=== PATIENT | female | born 1945 | race Caucasian/White ===

== ENCOUNTER → 2021-03-02 10:17 | Outpatient (CLI) | payer OTHER, SELFPAY ==
--- NOTE | ~2021-03-02 | MM_ITS ---
EXAMINATION: MM screening [facility] BI w steve HISTORY: Screening mammogram TECHNIQUE: Craniocaudal and mediolateral oblique 3-D tomosynthesis images were obtained and synthetic 2-D images were generated. CAD analysis was submitted and interpreted. COMPARISON: 03/24/2019, 01/09/2018, 12/14/2015 bilateral digital screening mammogram examinations BREAST PARENCHYMAL COMPOSITION: The breasts are almost entirely fatty. FINDINGS: There is no evidence of suspicious mass, calcification, or architectural distortion to sugg est malignancy in either breast. There has been no suspicious interval change. IMPRESSION: 1. No mammographic evidence of malignancy. 2. Recommend routine screening mammography in one year. BI-RADS Category 1: Negative Reviewed, dictated and finalized at location A.
--- NOTE | ~2021-03-02 | DEXA_ITS ---
Bone Density Report Name: Cinthya Tang Age: 76 Sex: Female Ethnicity: White Date of : 1945 Indication: postmenopausal; screening for osteoporosis; height loss; Referring Provider: Renetta Perez Study: Bone densitometry was performed. Exam Date: March 02, 2021 Accession number: [id number] Bone Density: Region BMD T-score Z-score Classification AP Spine (L2, L3, L4) 1.438 3.3 5.9 Normal Femoral Neck (Left) 0.773 -0.7 1.5 Normal Total Hip (Left) 0.874 -0.6 1.4 Normal Femoral Neck (Right) 0.809 -0.4 1.9 Normal Total Hip (Right) 0.931 -0.1 1.9 Normal Total Hip Mean 0.903 -0.4 1.7 Normal World Health Organization criteria for BMD impression classify patients as: Normal (T-score at or above -1.0), Osteopenia (T-score between -1.0 and -2.5), or Osteoporosis (T-score at or below -2.5). 10-year Fracture Risk: FRAX not reported because: All T-scores for Spine Total, Hip Total, Femoral Neck at or above -1.0 Previous Exams: Region Exam Age BMD T-score BMD Change BMD Change Date g/cm2 vs Baseline vs Previous Total Hip(Left) 03/02/2021 76 0.874 -0.6 -0.051 -0.051 01/09/2018 72 0.925 -0.1 Total Hip(Right) 03/02/2021 76 0.931 -0.1 -0.007 -0.007 01/09/2018 72 0.938 0.0 *Denotes significance at 95% confidence level, LSC for Total Hip = 0.027 g/cm2 Clinical Information Provided by Patient: Has used the following medications: Vitamin D, Calcium Patient maximum height was 63 Menopause Age: 43 Drinks caffeinated beverages Onset of menses at age 11 Number of children 1 Impression: The patient has normal bone mass. No significant bone loss was observed. Discussion: BONE DENSITY IS ABOVE THE MINIMUM DESIRABLE LEVEL AT ALL SKELETAL SITES TESTED. This patient?s bone mineral density is above the minimum desirable level (T-score -1.0 or better) at all sites measured. The patient should follow a healthful lifestyle (good nutrition with adequate calcium and vitamin D, and appropriate weight-bearing exercise). Follow-Up: Consider repeating this study in 5 years or sooner if there is some new clinical indication. Reported by: EMILY on 03/02/2021 10:54:00 AM. Reviewed, dictated and finalized at eladio CORTEZ
== END ==
PROVIDERS: PCP Family Medicine; Visit Provider Physician Assistant
DX: Z12.31 Encounter for screening mammogram for malignant neoplasm of breast (principal); Z78.0 Asymptomatic menopausal state
CPT/HCPCS: 77063; 77067; 77080

== ENCOUNTER 2021-10-26 08:30 | Outpatient (RCR) | payer OTHER, SELFPAY ==
[2021-07-29 08:07] VITALS: PULSE 41
== END 2021-10-26 15:22 | disposition home or self-care (01) ==
LOC: ANHCPREHAB 08:30
PROVIDERS: PCP Family Medicine
DX: Z95.2 Presence of prosthetic heart valve (principal)
CPT/HCPCS: 93798

== ENCOUNTER 2022-05-30 09:00 | Outpatient (RCR) | payer OTHER, SELFPAY ==
[2022-04-27 08:02] VITALS: BP_SYST 170
--- NOTE | 2022-04-27 09:03 | PTOPEVAL ---
PHYSICAL THERAPY INITIAL EVALUATION. Thank you for referring Cinthya Tang to [facility].? The patient is scheduled to be seen for therapy? 2x/week for 4 weeks. Please review, sign, date and return this plan of care FAISAL. I agree with and certify that the following plan of care is medically necessary. Referring Physician Date Attending Provider: Romero Ybarra MD *PT Outpatient Evaluation Start: 04/27/22 Evaluation Information Diagnosis Joaquim shoulder pain Onset ~3 months Subjective Information Pt states both of her Query Text:As Reported By Patient/ shoulders hurt. She states she Family can raise her R arm overhead to where she needs, but her L arm is very limited. 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 Pain Assessment Right Shoulder(s) Reported Pain Level 0 Pain Description Aching,Tightness,With Movement Pain Frequency Acute,Intermittent Lowest Pain Intensity 0 Greatest Pain Intensity 4 Pain Aggravating Factors Lifting Left Shoulder(s) Reported Pain Level 0 Pain Description Aching,Sharp,With Movement Pain Frequency Acute,Intermittent Lowest Pain Intensity 0 Greatest Pain Intensity 9 Pain Aggravating Factors Lifting Upper Extremity Range of Motion Scapular/ Shoulder Range of Motion Right Shoulder Flexion - Active 135 Shoulder Flexion - Passive 170 Shoulder Abduction - Active 130 Shoulder Abduction - Passive 170 Shoulder Medial Rotation - Active T8 Shoulder Lateral Rotation - Active T4 Left Shoulder Flexion - Active 95 Shoulder Flexion - Passive 170 Shoulder Abduction - Active 115 Shoulder Abduction - Passive 170 Shoulder Medial Rotation - Active T8 Shoulder Lateral Rotation - Active L upper trap Upper Extremity Muscle Strength Testing Scapular/Shoulder Right Shoulder Elevation - Upper Trapezius 5 Normal Scapular Protraction - Serratus 4+ Good + Shoulder Flexion Strength 5 Normal Shoulder Abduction Strength 4+ Good + Shoulder Medial Rotation Strength 4+ Good + Shoulder Lateral Rotation Strength 4+ Good + Left Scapular Protraction - Serratus 4+ Good + Shoulder Flexion Strength 4- Good - Shoulder Abduction Strength 4 Good Shoulder Medial Rotation Strength 4- Good - Shoulder Lateral Rotation Strength 3+ Fair + Muscle Length Testing Pectoralis Major Muscle Length (R) Mild Tightness,(L) Mild Tightness Posture Posture Evaluation View Posterior Head/C-Spine Posture Forward Head Thoracic Spine Posture Flattened,Increase
[2022-05-30 08:58] VITALS: BP_SYST 170
--- NOTE | 2022-05-30 09:49 | PTOPDC ---
Assessment and note entered by Leland Shetty, PT, DPT Evaluation Information Assessment Status Evaluation Diagnosis Joaquim shoulder pain Subjective Information Pt states she is doing pretty good but still has some aches and pains. She states reaching overhead has improved, especially on the R. She states her L arm still have difficulty lifting even minor weights over head. She states she feels like it is hard to control lowering her L arm from overhead. Pt reports 80% improvement in overall symptoms. Reported Pain Level Pain Score 0,1: Self Report Assessment PT Clinical Summary Cinthya presents to therapy today for her progress report following 8 visits of skilled therapy to treat her joaquim shoulder pain. Today she demonstrates significant improvement in active ROM joaquim, the L is now WFL. She also demonstrates improved strength joaquim, the L remains mildly weak compared to the R. She reports excellent compliance with her HEP and has met all of her therapy goals at this time and will therefore be discharged from skilled therapy services. Pt was instructed to continue her HEP upon discharge and to follow up with her referring provider if needed . Plan of Care PT Services Indicated No Treatment Frequency and to be d/c'ed Duration
== END 2022-05-31 09:47 | disposition home or self-care (01) ==
LOC: ANHPT 09:00
PROVIDERS: PCP Family Medicine; Visit Provider Orthopaedic Surgery
DX: M25.511 Pain in right shoulder (principal)
CPT/HCPCS: 97110; 97112; 97161

== ENCOUNTER → 2022-09-14 11:44 | Outpatient (CLI) | payer OTHER, SELFPAY ==
--- NOTE | ~2022-09-14 | MM_ITS ---
EXAMINATION: MM screening [facility] BI w steve HISTORY: Screening mammogram TECHNIQUE: Craniocaudal and mediolateral oblique 3-D tomosynthesis images were obtained and synthetic 2-D images were generated. CAD analysis was submitted and interpreted. COMPARISON: 03/02/2021, 03/24/2019, 01/09/2018 BREAST PARENCHYMAL COMPOSITION: There are scattered areas of fibroglandular density. FINDINGS: No suspicious mass, calcification, or architectural distortion are identified in either rasheeda ast to suggest malignancy. There has been no suspicious interval change. IMPRESSION: 1. No mammographic evidence of malignancy. 2. Recommend routine screening mammography in one year. BI-RADS Category 1: Negative Reviewed, dictated and finalized at location A. BENDER
== END ==
PROVIDERS: PCP Family Medicine; Visit Provider Nurse Practitioner Gerontology
DX: Z12.31 Encounter for screening mammogram for malignant neoplasm of breast (principal)
CPT/HCPCS: 77063; 77067

== ENCOUNTER 2022-11-06 09:23 | Outpatient (CLI) | payer OTHER, SELFPAY ==
--- NOTE | ~2022-11-06 | CT_ITS ---
EXAMINATION: CT abdomen wo con DATE: 11/06/2022 09:43 INDICATION: Left upper quadrant abdominal pain TECHNIQUE: Computed tomography (CT) of the abdomen was performed without intravenous contrast. The do se-length product was 414.62 mGy-cm. Automated exposure control and iterative reconstruction techniqu e were employed. COMPARISON: Ultrasound dated 11/11/2012 FINDINGS: Lung bases are unremarkable. Heart size normal. No focal airspace consolidation. Calcified granuloma of these liver. The spleen, pancreas, adrenal glands and kidneys are unremarkable for nonco ntrast CT. There is atherosclerosis of the aorta without aneurysm. No lymphadenopathy. Colonic divert iculosis without evidence for diverticulitis. Partially visualized appendix is unremarkable. Gallblad jean-paul is present. No free air or free fluid. Tiny fat-containing umbilical hernia. Severe lumbar and lo wer thoracic spondylosis. IMPRESSION: 1. No acute abnormality. No findings to account for patient's symptoms. Reviewed, dictated and finalized at location B. RECOVERY TECHNICIAN
== END 2022-11-06 09:24 | disposition home or self-care (01) ==
PROVIDERS: PCP Family Medicine; Visit Provider Nurse Practitioner Gerontology
DX: R10.12 Left upper quadrant pain (principal)
CPT/HCPCS: 74150

== ENCOUNTER → 2022-12-11 14:42 | Outpatient (CLI) | payer OTHER, SELFPAY ==
--- NOTE | ~2022-12-11 | XR_ITS ---
EXAMINATION: XR chest 2V Exam Date/Time: 12/11/2022 14:46 CDT HISTORY: COUGH FOR 2-3 WEEKS HX OF HTN NONSMOKER Comparison: 01/04/2015. RESULT: Lines, tubes, and devices: Cervical fusion hardware. Cardiac valve replacement. Lungs and pleura: Mild diffuse reticulonodular opacities and cuffing. No focal consolidation, pleura l effusion, or pneumothorax. Cardiomediastinal silhouette: Stable. Other: No acute osseous or upper abdominal finding. IMPRESSION: Pulmonary opacities may represent bronchiolitis, as can be seen with atypical infection, asthma, aspi ration, and small airways disease. Reviewed, dictated and finalized at location K. IMPRESSION: Pulmonary opacities may represent bronchiolitis, as can be seen with atypical i nfection, asthma, aspiration, and small airways disease.
== END ==
PROVIDERS: PCP Family Medicine; Visit Provider Physician Assistant
DX: R05.9 Cough, unspecified (principal); I10 Essential (primary) hypertension; R91.8 Other nonspecific abnormal finding of lung field
CPT/HCPCS: 71046

== ENCOUNTER 2024-07-23 09:18 | Outpatient (CLI) | payer OTHER, SELFPAY ==
--- NOTE | ~2024-07-23 | DEXA_ITS ---
Bone Density Report Name: LILLIAM BULLARD Age: 79 Sex: Female Ethnicity: White Date of : 1945 Indication: postmenopausal; screening for osteoporosis; height loss; Referring Provider: PAULO PANDYA Study: Bone densitometry was performed. Exam Date: July 23, 2024 Accession number: [id number] Bone Density: Region BMD T-score Z-score Classification AP Spine(L1-L4) 1.453 3.7 6.4 Normal Femoral Neck (Left) 0.717 -1.2 1.2 Osteopenia Total Hip (Left) 0.880 -0.5 1.6 Normal Femoral Neck (Right) 0.706 -1.3 1.1 Osteopenia Total Hip (Right) 0.929 -0.1 2.0 Normal Total Hip Mean 0.904 -0.3 1.8 Normal World Health Organization criteria for BMD impression classify patients as: Normal (T-score at or above -1.0), Osteopenia (T-score between -1.0 and -2.5), or Osteoporosis (T-score at or below -2.5). 10-year Fracture Risk(1): Major Osteoporotic Fracture 11% Hip Fracture 2.5% Reported Risk Factors: [place] (), Neck BMD=0.706, BMI=38.7 (1) FRAX(R) Version 3.08. Fracture probability calculated for an untreated patient. Fracture probability may be lower if the patient has received treatment. Previous Exams: Region Exam Age BMD T-score BMD Change BMD Change Date g/cm2 vs Baseline vs Previous AP Spine (L1-L4) 07/23/2024 79 1.453 3.7 0.092 (6.8%)* 0.092 (6.8%)* 11/11/2012 67 1.361 2.9 Total Hip(Left) 07/23/2024 79 0.880 -0.5 -0.137 (-13.5% -0.063 (-6.7%) 12/14/2015 70 0.943 0.0 -0.074 (-7.3%) -0.074 (-7.3%) 11/11/2012 67 1.017 0.6 Total Hip(Right) 07/23/2024 79 0.929 -0.1 -0.114 (-11.0% -0.054 (-5.5%) 12/14/2015 70 0.983 0.3 -0.061 (-5.8%) -0.061 (-5.8%) 11/11/2012 67 1.043 0.8 *Denotes significance at 95% confidence level, LSC for AP Spine = 0.022 g/cm2, LSC for Total Hip = 0.027 g/cm2 # Denotes dissimilar scan types or analysis methods Clinical Information Provided by Patient: Has used the following medications: Vitamin D, Calcium Patient maximum height was 63 Menopause Age: 46 Drinks caffeinated beverages Onset of menses at age 12 Number of children 2 Impression: The patient has low bone mass, based on the Right Femoral Neck T-score. The patient has an estimated ten-year risk of hip fracture of 2.5% and an estimated ten-year risk of major fracture of 11%, based on the WHO FRAX algorithm. The BMD for the Total Hip(Left) decreased, changing by -6.7% since the last DXA exam. The BMD for the Total Hip(Right) decreased, changing by -5.5% since the last DXA exam. Discussion: BONE DENSITY IS LOW AT ONE OR MORE SKELETAL SITES. This patient's lowest T-score is low at one or more skeletal sites. It meets the World Health Organization's (WHO) criteria for ?low bone mass? (T-score between -1.0 and -2.5). The patient's 10-year risk of fracture as calculated by FRAX is less than the threshold where pharmacological therapy is recommended by the National Osteoporosis Foundation (NOF). However, all treatment decisions require clinical judgment and consideration of individual patient factors, including patient preferences, comorbidities, previous drug use, risk factors not captured in the FRAX model (e.g., frailty, falls, vitamin D deficiency, increased bone turnover, interval significant decline in bone density) and possible under or overestimation of fracture risk by FRAX. The patient should follow a healthful lifestyle (good nutrition with adequate calcium and vitamin D, and appropriate weight-bearing exercise). Follow-Up: Consider repeating this study in 2 years to reassess this patient's status, or sooner if there is some new clinical indication. Reported by: MARY on 07/23/2024 10:03:00 AM. Reviewed, dictated and finalized at location AJu CORTEZ
== END 2024-07-23 09:19 | disposition home or self-care (01) ==
LOC: ANHIMG 09:19
PROVIDERS: PCP Family Medicine; Visit Provider Physician Assistant
DX: Z78.0 Asymptomatic menopausal state (principal); M85.852 Other specified disorders of bone density and structure, left thigh; M85.851 Other specified disorders of bone density and structure, right thigh
CPT/HCPCS: 77080

== ENCOUNTER 2024-11-11 09:09 | Outpatient (CLI) | payer OTHER, SELFPAY | END 2024-11-11 09:10 | disposition home or self-care (01) | PROVIDERS: PCP Family Medicine; Visit Provider Physician Assistant | DX: Z12.31 Encounter for screening mammogram for malignant neoplasm of breast (principal); Z78.0 Asymptomatic menopausal state | CPT/HCPCS: 77063; 77067 ==